=== PATIENT | female | born 1995 | race American Indian/Alaskan Native ===

== ENCOUNTER 2017-04-13 22:10 | Emergency (ER) | payer MEDICAID, OTHER ==
[2017-04-14 03:01] VITALS: BP 108/90
[2017-04-14 04:30] LABS: Bacteria,Urine 1+ /HPF (Negative); Bilirubin,Urine NEG (Negative); Blood,Urine NEG (Negative); Color,Urine Yellow (Yellow); Mucus,Urine 1+ /HPF; Urobilinogen,Urine < 2.0 mg/dL (<2.0)
--- NOTE | 2017-04-14 05:20 | Emergency Department Report ---
ED Female HPI - General Chief complaint: Urogenital-Female Stated complaint: PAIN AND NAUSEA Time Seen by Provider: 04/14/17 05:20 Source: patient, family Mode of arrival: Ambulatory Limitations: No Limitations - History of Present Illness Initial comments: Patient here report that she is 17 weeks and been seen by [facility]. She said that she has symptoms as urinary tract infection to include burning urgency and frequency. Denies any abdominal or back pain. Denies any nausea or vomiting. Denies any fever or chills. Pain is 10 out of 10 with urinating. Burning sensation. No medication taken. Patient reports that her baby is fine and she's been having a regular care to include taking vitamin. Denies any vaginal bleeding or discharge. She said babies moving appropriately. MD Complaint: dysuria Onset/Timin -: days(s) Severity: severe Severity scale (0 -10): 10 Quality: burning (urinating) Consistency: intermittent Worsens with: urination Are you Now?: Yes (17 weeks) Associated Symptoms: dysuria. denies: vaginal discharge, vaginal bleeding, abdominal pain, nausea/vomiting, fever/chills, headaches, loss of appetite, hematuria, shortness of breath, syncope, weakness - Related Data Sexually active: Yes Previous Rx's Medication Instructions Recorded Last Taken Type Acetaminophen/Codeine 1 tab PO Q6H PRN #10 tab 04/11/14 Unknown Rx [Acetaminophen-Codeine #3 TAB] Cyclobenzaprine [Flexeril 10mg] 10 mg PO BID PRN #10 tablet 04/11/14 Unknown Rx Ibuprofen [Motrin 600 MG tab] 600 mg PO Q8H PRN #10 tablet 04/11/14 Unknown Rx Fluconazole [Diflucan TAB] 150 mg PO ONCE 1 Days #1 tablet 04/14/17 Unknown Rx Nitrofurantoin Terry/M-Cryst 100 mg PO Q12HR 7 Days #14 capsule 04/14/17 Unknown Rx [Macrobid CAP] Allergies Allergy/AdvReac Type Severity Reaction Status Date / Time No Known Allergies Allergy Unverified 04/11/14 20:10 ED Review of Systems ROS: Stated complaint: PAIN AND NAUSEA Other details as noted in HPI Comment: All other systems reviewed and negative Constitutional: no symptoms reported Respiratory: no symptoms reported Cardiovascular: denies: chest pain, palpitations, dyspnea on exertion, edema, syncope, paroxysmal nocturnal dyspnea Gastrointestinal: denies: abdominal pain, nausea, vomiting, diarrhea, constipation, hematemesis, melena, hematochezia Genitourinary: urgency, dysuria, frequency. denies: hematuria, discharge Musculoskeletal: denies: back pain, joint swelling, arthralgia Skin: denies: rash Neurological: denies: headache ED Past Medical Hx - Past Medical History Previous Medical History?: Yes Hx Asthma: Yes - Surgical History Past Surgical History?: No - Family History Family history: no significant - Social History Smoking Status: Never Smoker Substance Use Type: None - Medications Home Medications: Home Medications Medication Instructions Recorded Confirmed Last Taken Type Acetaminophen/Codeine 1 tab PO Q6H PRN #10 tab 04/11/14 Unknown Rx [Acetaminophen-Codeine #3 TAB] Cyclobenzaprine [Flexeril 10mg] 10 mg PO BID PRN #10 tablet 04/11/14 Unknown Rx Ibuprofen [Motrin 600 MG tab] 600 mg PO Q8H PRN #10 tablet 04/11/14 Unknown Rx Fluconazole [Diflucan TAB] 150 mg PO ONCE 1 Days #1 tablet 04/14/17 Unknown Rx Nitrofurantoin Terry/M-Cryst 100 mg PO Q12HR 7 Days #14 capsule 04/14/17 Unknown Rx [Macrobid CAP] ED Physical Exam - General Limitations: No Limitations General appearance: alert, in no apparent distress - Head Head exam: Present: atraumatic, normocephalic, normal inspection - Eye Eye exam: Present: normal appearance, PERRL, EOMI Pupils: Present: normal accommodation - ENT ENT exam: Present: normal exam, normal orophraynx, mucous membranes moist - Neck Neck exam: Present: normal inspection, full ROM. Absent: tenderness, meningismus, lymphadenopathy, thyromegaly - Respiratory Respiratory exam: Present: normal lung sounds bilaterally. Absent: respiratory distress, chest wall tenderness - Cardiovascular Cardiovascular Exam: Present: regular rate, normal rhythm, normal heart sounds. Absent: systolic murmur, diastolic murmur - GI/Abdominal GI/Abdominal exam: Present: soft, normal bowel sounds. Absent: distended, tenderness, guarding, rebound, rigid, organomegaly, mass, bruit, pulsatile mass , hernia - Extremities Exam Extremities exam: Present: normal inspection, full ROM, normal capillary refill , other (no clubbing, cyanosis or edema. +2 pulses to all extremities and no neurovascular compromise.). Absent: tenderness, pedal edema, joint swelling, calf tenderness - Back Exam Back exam: Present: normal inspection, full ROM, other (ambulates without any difficulties). Absent: tenderness, CVA tenderness (R), CVA tenderness (L), muscle spasm, paraspinal tenderness, vertebral tenderness, rash noted - Neurological Exam Neurological exam: Present: alert, oriented X3, normal gait - Psychiatric Psychiatric exam: Present: normal affect, normal mood - Skin Skin exam: Present: warm, dry, intact, normal color. Absent: rash ED Course Vital Signs 04/13/17 04/14/17 22:32 03:00 Temperature 98.3 F 98.3 F Pulse Rate 92 H 80 Respiratory 18 14 Rate Blood Pressure 129/85 108/90 O2 Sat by Pulse 100 100 Oximetry - Reevaluation(s) Reevaluation #1: 04/14/17 06:17 given Rocephin 1 g IM in emergency room without any adverse reaction to cover her urinary tract infection ED Medical Decision Making - Lab Data Lab Results 04/14/17 Range/Units 03:47 Urine Color Yellow (Yellow) Urine Turbidity Cloudy (Clear) Urine pH 6.0 (5.0-7.0) Ur Specific [place] 1.028 (1.003-1.030) Urine Protein 30 mg/dl (Negative) mg/dL Urine Glucose (UA) Neg (Negative) mg/dL Urine Ketones Neg (Negative) mg/dL Urine Blood Neg (Negative) Urine Nitrite Neg (Negative) Urine Bilirubin Neg (Negative) Urine Urobilinogen < 2.0 (<2.0) mg/dL Ur Leukocyte Esterase Lg (Negative) Urine WBC (Auto) 53.0 H (0.0-6.0) /HPF Urine RBC (Auto) 10.0 (0.0-6.0) /HPF U Epithel Cells (Auto) 12.0 (0-13.0) /HPF Urine Bacteria (Auto) 1+ (Negative) /HPF Urine Mucus 1+ /HPF Ur Yeast w Hyphae 1+ /HPF Urine Yeast (Budding) 2+ /HPF Urine culture pending - Medical Decision Making ED course: Patient here with urinary symptoms at 17 weeks . She denies any abdominal pain, back pain, vaginal bleeding or discharge. She reports urinary burning, frequency and urgency that started a day ago. Patient is been followed by [facility] and she says that she gets regular check and she's had ultrasound because in her uterus. Baby is moving appropriately per patient. Pain with urination that out of 10. Urinalysis reveal patient with acute cystitis without hematuria with large amount of leukocyte esterase, 53 wbc, 30 protein she also has yeast in her urine with denial of vaginal discharge. I discussed the patient diagnosis and treatment plan. She was given Rocephin 1 g IM in emergency room without any adverse reaction. Patient able to tolerate oral liquids. Patient discharged home to follow-up with [facility] in 2 days. I told her to call today to schedule an appointment for follow-up visit. I discussed with her I we'll treat urinary tract infection with antibiotic pill and yeast infection with vaginal suppository. Patient discharged home with prescription for Macrobid and Diflucan on 150 mg 1 dose. I discussed patient that she needs to tell her [facility] WORK[facility] doctor that she was treated in emergency room for yeast urinary tract infection with Diflucan on initial standing her body for 90 days and also with Macrobid. I encouraged her to increase her fluid intake. Critical care attestation.: If time is entered above; I have spent that time in minutes in the direct care of this critically ill patient, excluding procedure time. ED Disposition Clinical Impression: Yeast UTI Acute cystitis during Qualifiers: Trimester: second trimester Qualified Code(s): O23.12 - Infections of bladder in , second trimester Disposition: DC-01 TO HOME OR SELFCARE Is pt being admited?: No Does the pt Need Aspirin: No Condition: Stable Instructions: Dysuria (ED), Urinary Tract Infection in Women (ED) Additional Instructions: Please state Diflucan 1 dose as prescribed. This will treat yeast urinary tract infection which she have a small amount of yeast in your urine Take Macrobid 7 days for arterial infection Call your [facility] WORKER today to schedule an appointment to see tomorrow or the next day. If he develops, abdominal pain, vaginal bleeding or any related problems, return to the emergency room drink plenty of fluid. Prescriptions: Fluconazole [Diflucan TAB] 150 mg PO ONCE 1 Days #1 tablet Nitrofurantoin Terry/M-Cryst [Macrobid CAP] 100 mg PO Q12HR 7 Days #14 capsule Referrals: [facility] [Provider Group] - 04/15/17 Forms: Work/School Release Form(ED)
[2017-04-14] MEDS ORDERED: ROCEPHIN IM STA (05:21)
== END 2017-04-14 06:45 | disposition home or self-care (01) ==
LOC: ED 22:10
DX: O23.12 Infections of bladder in pregnancy, second trimester (principal); O99.512 Diseases of the respiratory system complicating pregnancy, second trimester; J45.909 Unspecified asthma, uncomplicated; Z3A.17 17 weeks gestation of pregnancy
CPT/HCPCS: 81001; 96372; 99283; J0696

== ENCOUNTER 2017-06-06 09:06 | Outpatient (CLI) | payer BC, MEDICAID ==
[2017-06-06 11:58] VITALS: BP 113/74
--- NOTE | 2017-06-06 14:58 | Ultrasound Report ---
OB limited and sonographic Limited abdomen: History: Status post fall. Abdominal pain. Findings: Single fetus with cephalic presentation. Placenta is fundal and grade 0. heart rate 159 per minute. No evidence of abruptio. Average gestational age 24 weeks and 2 days. Impression: Findings as detailed above. No evidence of abruptio.
[2017-06-06 16:28] LABS: Basophils % (Auto) 0.4 % (0.0-1.8); Eosinophils # (Auto) 0.2 K/mm3 (0.0-0.4); Eosinophils % (Auto) 2.4 % (0.0-4.3); Hematocrit 34.6 % (30.3-42.9); Hemoglobin 11.4 gm/dl (10.1-14.3); Lymphocytes # (Auto) 1.9 K/mm3 (1.2-5.4); Mean Corpuscular HGB Conc 33 % (30-34); Mean Corpuscular Hemoglobin 30 pg (28-32); Mean Corpuscular Volume 91 fl (79-97); Monocytes # (Auto) 0.3 K/mm3 (0.0-0.8); Monocytes % (Auto) 3.8 % (0.0-7.3); Platelet Count 276 K/mm3 (140-440); Red Blood Count 3.82 M/mm3 (3.65-5.03); Red Cell Distribution Width 14.3 % (13.2-15.2)
[2017-06-06 16:39] LABS: INR 0.99 (0.87-1.13)
[2017-06-06 16:40] LABS: Partial Thromboplastin Time 30.5 Sec. (24.2-36.6)
== END 2017-06-06 16:45 | disposition home or self-care (01) ==
LOC: US 09:06 → LD 10:50 → US 16:45
PROVIDERS: ATTEND Obstetrics & Gynecology
DX: O99.612 Diseases of the digestive system complicating pregnancy, second trimester (principal); K80.20 Calculus of gallbladder without cholecystitis without obstruction; Z91.81 History of falling; Z3A.24 24 weeks gestation of pregnancy
CPT/HCPCS: 36415; 59025; 76705; 76815; 85025; 85610; 85730

== ENCOUNTER 2017-06-25 20:41 | Outpatient (CLI) | payer BC, MEDICAID ==
[2017-06-25 20:54] VITALS: BP 113/67
== END 2017-06-25 21:40 | disposition home or self-care (01) ==
LOC: TRG 20:41
PROVIDERS: ATTEND Obstetrics & Gynecology
DX: O36.8120 Decreased fetal movements, second trimester, not applicable or unspecified (principal); Z3A.27 27 weeks gestation of pregnancy
CPT/HCPCS: 59025

== ENCOUNTER 2017-07-07 22:43 | Outpatient (CLI) | payer BC, MEDICAID ==
[2017-07-07 22:59] VITALS: BP 116/62
[2017-07-07] MEDS ORDERED: LACTATED RINGERS 1,000 ML IV ONE (23:35)
[2017-07-08 01:01] LABS: Bacteria,Urine 1+ /HPF (Negative); Bilirubin,Urine NEG (Negative); Blood,Urine NEG (Negative); Calcium Oxalate Crystals,Urine 1+; Color,Urine Yellow (Yellow); Mucus,Urine 1+ /HPF
[2017-07-08 01:06] LABS: WBC,Urine > 182.0 /HPF (0.0-6.0)
[2017-07-08] MEDS ORDERED: ROCEPHIN/NS 1 GM/50 ML 1 GM/50 ML BAG IV ONE (02:08)
[2017-07-08] MEDS ORDERED: cefTRIAXone 1 GM in NACL 0.9% 20 ML IV ONE (02:08)
--- NOTE | 2017-07-15 09:48 | Ultrasound Report ---
FINAL REPORT EXAM: OB US LIMITED FETUS(S) HISTORY: Vaginal bleeding TECHNIQUE: Transabdominal imaging was obtained through the pelvis with Doppler interrogation of the placenta and fetus. FINDINGS: There is a single viable IUP with an estimated gestational age of 28 weeks 6 days. The heart rate is 159 BPM. The placenta is anterior and fundal and is grade 1. There is no evidence of abruption. The cervical length is 2.2 cm. The cervix is closed. A complete survey of organs was not obtained. IMPRESSION: Single viable IUP, 28 weeks 6 days. The heart rate is 159 BPM. No evidence of placental abruption. The cervix is closed measuring 2.2 cm in length.
== END 2017-07-08 02:50 | disposition home or self-care (01) ==
LOC: TRG 22:43
PROVIDERS: ATTEND Obstetrics & Gynecology
DX: O46.93 Antepartum hemorrhage, unspecified, third trimester (principal); Z3A.28 28 weeks gestation of pregnancy
CPT/HCPCS: 36415; 59025; 76815; 81001; 82731; 96374; J0696

== ENCOUNTER 2017-07-13 06:04 | Outpatient (CLI) | payer BC, MEDICAID ==
[2017-07-13 06:23] VITALS: BP 115/67
[2017-07-13] MEDS ORDERED: LACTATED RINGERS 1,000 ML IV ONE (06:29)
[2017-07-13] MEDS ORDERED: ZOFRAN IV ONE (06:37)
[2017-07-13] MEDS ORDERED: LACTATED RINGERS 1,000 ML ONE ×2 (06:38→11:16)
[2017-07-13 07:14] LABS: Amorphous Crystals,Urine Few; Bilirubin,Urine NEG (Negative); Blood,Urine NEG (Negative); Color,Urine Amber (Yellow); Mucus,Urine 2+ /HPF
[2017-07-13 07:19] LABS: Hematocrit 34.4 % (30.3-42.9); Hemoglobin 11.9 gm/dl (10.1-14.3); Mean Corpuscular HGB Conc 35 % (30-34); Mean Corpuscular Hemoglobin 31 pg (28-32); Mean Corpuscular Volume 88 fl (79-97); Platelet Count 259 K/mm3 (140-440); Red Cell Distribution Width 14.7 % (13.2-15.2)
[2017-07-13 07:22] LABS: Lipase 16 units/L (13-60)
[2017-07-13 07:26] LABS: Alanine Aminotransferase 7 units/L (7-56); Albumin 3.1 g/dL (3.9-5); BUN/Creatinine Ratio 13; Blood Urea Nitrogen 5 mg/dL (7-17); Calcium 8.3 mg/dL (8.4-10.2); Hemolysis Index 4
--- NOTE | 2017-07-13 11:51 | Ultrasound Report ---
ULTRASOUND ABDOMEN COMPLETE: TECHNIQUE: Transabdominal ultrasound with color Doppler interrogation. HISTORY: Nausea and vomiting during . COMPARISON: none. FINDINGS: LIVER: Normal. BILIARY SYSTEM: Multiple small shadowing gallstones are noted within the gallbladder which are unchanged since 06/06/17 exam. No evidence for abnormal dilatation, wall thickening or surrounding fluid. The CBD measures 3 mm. PANCREAS: Normal. SPLEEN: Normal. KIDNEYS: Normal. AORTA/IVC: Normal. ASCITES: None. IMPRESSION: Cholelithiasis. No acute abdominal process..
[2017-07-13] MEDS ORDERED: ALUM-MAG HYDROX-SIMETH 200-200-20MG/5ML PO ONE (12:00)
[2017-07-13] MEDS ORDERED: MIRACLE MIXTURE PO SCH (12:00)
[2017-07-13] MEDS ORDERED: LIDOCAINE VISCOUS 2% PO ONE (12:00)
== END 2017-07-13 15:25 | disposition home or self-care (01) ==
LOC: TRG 06:04 → LD 11:25 → TRG 15:25
PROVIDERS: ATTEND Obstetrics & Gynecology
DX: O47.02 False labor before 37 completed weeks of gestation, second trimester (principal); Z3A.29 29 weeks gestation of pregnancy
CPT/HCPCS: 36415; 59025; 76700; 80053; 81001; 82150; 83690; 85027; J2405; J7120

== ENCOUNTER 2017-07-13 21:04 | Observation (INO) | payer BC, MEDICAID ==
--- NOTE | 2017-07-13 22:37 | History and Physical Report ---
History of Present Illness Date of examination: 07/13/17 Chief complaint: abdominal pain, heartburn History of present illness: Pt is a 22 year old -Irish female BOLA 09/24/17 at 29w4d who presents with epigastric abdominal pain and severe heartburn. Pt called answering service in the early AM with complaint of heartburn. Omeprazole 20 mg PO daily sent to her pharmacy on file. She then felt that her heartburn worsened after taking this medication as well as frequent nausea and vomiting so she presented to triage. She was observed for 2 hours, received a GI cocktail , Zofran and had a right upper quadrant ultrasound which showed cholelithiasis. She subsequently reported a pain scale value of 0 and was discharged home. Once at home, the patient attempted to eat two bites of baked chicken and her symptoms returned. She has been admitted for further observation. She has had care at [facility] since 8 wks with comanagement by [facility] complicated by morbid obesity, h/o HELLP syndrome at 30 wks , H/o labor at 30 wks, h/o IUFD at 30 wks, genital herpes, chlamydia ( treated with a negative test of cure), fibroid uterus, asthma, IUGR which resolved per [facility] sono 06/20/17, and GERD. 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 History: chlamydia (treated with negative test of cure ), herpes Family/Genetic History: hypertension Social history: no significant social history - Obstetrical History Expected Date of Delivery: 09/24/17 Actual Gestation: 29 Week(s) 5 Day(s) : 3 Para: 2 Hx # Term Pregnancies: 0 Number of Pregnancies: 2 Spontaneous Abortions: 0 Induced : 0 Number of Living Children: 1 Medications and Allergies Allergies Allergy/AdvReac Type Severity Reaction Status Date / Time No Known Allergies Allergy Verified 06/06/17 10:14 Home Medications Medication Instructions Recorded Confirmed Last Taken Type Aspirin [Aspirin BABY CHEW TAB] 81 mg PO QDAY 07/13/17 07/13/17 07/13/17 History Omeprazole Magnesium [PriLOSEC Otc] 20 mg PO QDAY 07/13/17 07/13/17 07/12/17 23: 30 History Pnv 102/Iron/Folate 1/Dss/Dha 1 each PO DAILY 07/13/17 07/13/17 07/13/17 History [Vitafol Fe+ Docusate Combo Pck] Review of Systems All systems: negative - Vital Signs Vital signs: Vital Signs Pulse Ox 85 07/13/17 11:03 Temp Pulse Resp BP Pulse Ox 98.6 F 92 H 18 118/66 97 07/13/17 21:35 07/13/17 22:38 07/13/17 21:35 07/13/17 21:38 07/13/17 22:38 - Physical Exam Breasts: Positive: deferred Cardiovascular: Regular rate Lungs: Positive: Clear to auscultation Abdomen: Positive: soft (obese, gravid ) Genitourinary (Female): Positive: normal external genitalia Extremities: Positive: normal - Obstetrical FHR: auscultation normal Uterine Contraction Monitor Mode: External Uterine Tone Measurement Phase: Resting Results All other labs normal. Assessment and Plan A: IUP at 29w5d Periumbilical pain GERD Asthma H/o labor at 30 wks H/o IUFD at 30 wks H/o HELLP Syndrome Genital herpes Fibroid uterus P: Admit to antepartum service Continuous monitoring FFN Betamethasone course GI consult in AM GI cocktail PRN Labs drawn during triage visit earlier today.
[2017-07-13] MEDS ORDERED: COLACE PO PRN (22:49)
[2017-07-13] MEDS ORDERED: ZOFRAN IV PRN (22:49)
[2017-07-13] MEDS ORDERED: TYLENOL PO PRN (22:49)
[2017-07-13] MEDS ORDERED: DEEP SEA NS PRN (22:49)
[2017-07-13] MEDS ORDERED: BENADRYL PO PRN (22:49)
[2017-07-13] MEDS ORDERED: MORPHINE IV PRN (23:09)
[2017-07-13] MEDS: MIRACLE MIXTURE PO PRN (23:44)
[2017-07-13] MEDS: D5LR 1,000 ML IV SCH (23:45)
[2017-07-14] MEDS: CELESTONE SOLUSPAN IM SCH (00:07)
[2017-07-14] MEDS: D5LR 1,000 ML IV SCH ×2 (07:37→17:15)
--- NOTE | 2017-07-14 08:51 | Progress Note ---
Assessment and Plan A: IUP at 29+6 weeks Periumbilical pain GERD Asthma H/o labor at 30 wks H/o IUFD at 30 wks H/o HELLP Syndrome Genital herpes Fibroid uterus P: Continuous monitoring FFN neg Betamethasone course GI consult in AM-awaiting GI cocktail PRN Subjective - Subjective Date of service: 07/14/17 Principal diagnosis: nausea and vomiting Patient reports: movement normal, no new complaints, no loss of fluid, no vaginal bleeding, no contractions Objective - Vital Signs Vital Signs: Vital Signs - 12hr 07/13/17 07/13/17 07/13/17 21:35 21:38 21:41 Temperature 98.6 F Pulse Rate 104 H 95 H Respiratory 18 Rate Blood Pressure 118/66 Blood Pressure [Left] O2 Sat by Pulse 97 94 Oximetry 07/13/17 07/13/17 07/13/17 21:43 21:48 21:53 Temperature Pulse Rate 95 H 95 H 93 H Respiratory Rate Blood Pressure Blood Pressure [Left] O2 Sat by Pulse 98 97 97 Oximetry 07/13/17 07/13/17 07/13/17 21:58 22:03 22:08 Temperature Pulse Rate 92 H 94 H 92 H Respiratory Rate Blood Pressure Blood Pressure [Left] O2 Sat by Pulse 97 96 98 Oximetry 07/13/17 07/13/17 07/13/17 22:13 22:18 22:23 Temperature Pulse Rate 98 H 95 H 86 Respiratory Rate Blood Pressure Blood Pressure [Left] O2 Sat by Pulse 99 97 97 Oximetry 07/13/17 07/13/17 07/13/17 22:28 22:33 22:38 Temperature Pulse Rate 93 H 91 H 92 H Respiratory Rate Blood Pressure Blood Pressure [Left] O2 Sat by Pulse 96 96 97 Oximetry 07/13/17 07/13/17 07/13/17 22:43 22:48 22:53 Temperature Pulse Rate 97 H 97 H 90 Respiratory Rate Blood Pressure Blood Pressure [Left] O2 Sat by Pulse 97 97 98 Oximetry 07/13/17 07/13/17 07/13/17 22:58 23:03 23:08 Temperature Pulse Rate 90 90 93 H Respiratory Rate Blood Pressure Blood Pressure [Left] O2 Sat by Pulse 97 97 98 Oximetry 07/13/17 07/13/17 07/13/17 23:13 23:18 23:23 Temperature Pulse Rate 89 87 85 Respiratory Rate Blood Pressure Blood Pressure [Left] O2 Sat by Pulse 97 97 99 Oximetry 07/13/17 07/13/17 07/13/17 23:28 23:33 23:38 Temperature Pulse Rate 81 87 91 H Respiratory Rate Blood Pressure Blood Pressure [Left] O2 Sat by Pulse 95 95 96 Oximetry 07/13/17 07/14/17 07/14/17 23:43 00:11 00:16 Temperature 98.7 F Pulse Rate 85 88 Respiratory 18 Rate Blood Pressure Blood Pressure [Left] O2 Sat by Pulse 95 98 95 Oximetry 07/14/17 07/14/17 07/14/17 00:17 05:06 05:07 Temperature 98.4 F Pulse Rate 81 87 Respiratory 18 Rate Blood Pressure 98/51 104/58 Blood Pressure [Left] O2 Sat by Pulse 97 Oximetry 07/14/17 07/14/17 07/14/17 07:49 07:52 07:55 Temperature 97.7 F Pulse Rate 72 72 79 Respiratory 14 Rate Blood Pressure 107/67 Blood Pressure 107/67 [Left] O2 Sat by Pulse 100 98 Oximetry - Exam Breasts: normal Cardiovascular: Regular rate, Normal S1 Lungs: Clear to auscultation, Normal air movement Abdomen: Present: normal appearance, soft, normal bowel sounds. Absent: distention, tenderness, guarding Vulva: both: normal Uterus: Present: normal, firm, fundal height below umbilicus. Absent: bogginess , tenderness FHR: auscultation normal, category 1 - Labs Labs: Laboratory Results - last 24 hr 07/14/17 00:11 Fibronectin Negative
[2017-07-14] MEDS ORDERED: PRENATAL VITAMIN PO SCH (10:00)
--- NOTE | 2017-07-14 11:47 | Gastroenterology Consultation ---
History of Present Illness - Reason for Consult Consult date: 07/14/17 nausea and vomiting, gallstone Requesting physician: YUMIKO RUSSELL - History of Present Illness The patient is a 22 year old female for whom consultation was requested for nausea, vomiting and the finding of gallbladder stones on u/s done just prior to admission. She has had severe heartburn associated with some nausea and vomiting for a few days. Heartburn has been and issue for a few months. She denies back pain or weight loss. Symptoms have improved since admission so far. She is currently at 29 weeks in her . The u/s report is not presently available for review of the details. She has a prior history of HELLP syndrome at 29 weeks gestation and a history of pre term labor at 30 weeks. Past History Past Medical History: No medical history Past Surgical History: No surgical history Social history: no significant social history. denies: smoking, alcohol abuse Family history: no significant family history Medications and Allergies Allergies Allergy/AdvReac Type Severity Reaction Status Date / Time No Known Allergies Allergy Verified 06/06/17 10:14 Home Medications Medication Instructions Recorded Confirmed Last Taken Type Aspirin [Aspirin BABY CHEW TAB] 81 mg PO QDAY 07/13/17 07/13/17 07/13/17 History Omeprazole Magnesium [PriLOSEC Otc] 20 mg PO QDAY 07/13/17 07/13/17 07/12/17 23: 30 History Pnv 102/Iron/Folate 1/Dss/Dha 1 each PO DAILY 07/13/17 07/13/17 07/13/17 History [Vitafol Fe+ Docusate Combo Pck] Active Meds: Active Medications Acetaminophen (Tylenol) 650 mg PO Q4H PRN PRN Reason: Pain MILD(1-3)/Fever >100.5/ZHAO Betamethasone Acet/Betameth SodPhos (Celestone Soluspan) 12 mg IM Q24H SANDHYA Stop: 07/15/17 00:01 Last Admin: 07/14/17 00:07 Dose: 12 mg Diphenhydramine HCl (Benadryl) 25 mg PO Q6H PRN PRN Reason: Itching Docusate Sodium (Colace) 100 mg PO Q12H PRN PRN Reason: Constipation Dextrose/Lactated Ringer's (D5lr) 1,000 mls @ 125 mls/hr IV DIRECT SANDHYA Last Admin: 07/14/17 07:37 Dose: 125 mls/hr Lidocaine HCl (Miracle Mixture) 15 ml PO Q8H PRN PRN Reason: Pain Last Admin: 07/13/17 23:44 Dose: 15 ml Morphine Sulfate (Morphine) 2 mg IV Q4H PRN PRN Reason: Pain, Moderate (4-6) Multivitamins/Iron/Calcium ( Vitamin) 1 each PO QDAY [facility] Last Admin: 07/14/17 10:48 Dose: 1 each Ondansetron HCl (Zofran) 4 mg IV Q6H PRN PRN Reason: Nausea And Vomiting Pantoprazole Sodium (Protonix) 40 mg PO QDAY [facility] Sodium Chloride (Deep Sea) 2 spray NS Q4H PRN PRN Reason: Congestion Review of Systems - Review of Systems Constitutional: weight gain Eyes: no change in vision Ears, Nose, Throat: no difficulty swallowing, no epistaxis, no painful swallowing Breasts: deferred Cardiovascular: no chest pain, no rapid/irregular heart beat, no shortness of breath Respiratory: no cough, no shortness of breath Gastrointestinal: abdominal pain, nausea, vomiting, no hematemesis, no BRBPR, no melena Rectal: no pain Female Genitourinary: deferred Musculoskeletal: no gait dysfunction, no joint pain, no muscle pain Integumentary: no deferred, no rash, no pruritis, no jaundice Neurological: no head injury, no paralysis Psychiatric: no anxiety, no memory loss Endocrine: no cold intolerance, no heat intolerance Exam - Constitutional Vital Signs: Temp Pulse Resp BP Pulse Ox 97.7 F 79 14 107/67 98 07/14/17 07:49 07/14/17 07:55 07/14/17 07:49 07/14/17 07:52 07/14/17 07:55 General appearance: no acute distress, well-nourished - EENT Eyes: PERRL ENT: hearing intact, clear oral mucosa, dentition normal - Neck Neck: supple, normal ROM, no masses or JVD - Respiratory Respiratory effort: normal Respiratory: bilateral: CTA - Breasts Breasts: deferred - Cardiovascular Rhythm: regular Heart Sounds: Present: S1 & S2. Absent: gallop, rub Extremities: pulses intact, No edema, normal color, Full ROM - Gastrointestinal General gastrointestinal: Present: soft, non-tender, distended (consistent with gestation stage), normal bowel sounds. Absent: hepatomegaly (within limits of the body habitus), splenomegaly (within limits of the body habitus) Rectal Exam: deferred - Genitourinary Female Genitourinary: deferred - Neurologic Neurological: alert and oriented x3 - Psychiatric Psychiatric: appropriate mood/affect, intact judgment & insight, memory intact - Labs Lab Results: Laboratory Results - last 24 hr 07/14/17 00:11 Fibronectin Negative Assessment and Plan - Patient Problems (1) Nausea & vomiting Current Visit: Yes Status: Acute Plan to address problem: Labs ordered to assess LFTs, lipase level. (2) Gallstone Current Visit: Yes Status: Acute Plan to address problem: The exam and symptoms do not favor acute cholecystitis. I would like to see the details of the u/s to assess the GB for other signs of cholecystitis. Further evaluation in the post status would be preferred, eg HIDA scan. She would not be a surgical candidate short of emergency. (3) Current Visit: Yes Status: Acute Qualifiers: Weeks of gestation: 29 weeks Qualified Code(s): Z3A.29 - 29 weeks gestation of (4) GERD (gastroesophageal reflux disease) Current Visit: Yes Status: Acute Plan to address problem: Higher dose PPI has been ordered. She may need IV protonix if unable to tolerate PO.
[2017-07-14] MEDS ORDERED: PROTONIX PO SCH (12:00)
[2017-07-14 13:42] LABS: Basophils % (Auto) 0.1 % (0.0-1.8); Hematocrit 34.5 % (30.3-42.9); Hemoglobin 11.9 gm/dl (10.1-14.3); Lymphocytes # (Auto) 0.9 K/mm3 (1.2-5.4); Mean Corpuscular HGB Conc 34 % (30-34); Mean Corpuscular Hemoglobin 31 pg (28-32); Mean Corpuscular Volume 89 fl (79-97); Monocytes # (Auto) 0.2 K/mm3 (0.0-0.8); Monocytes % (Auto) 2.9 % (0.0-7.3); Platelet Count 286 K/mm3 (140-440); Red Blood Count 3.89 M/mm3 (3.65-5.03); Red Cell Distribution Width 14.8 % (13.2-15.2)
--- NOTE | 2017-07-14 15:42 | Query- General ---
Dearobbie Ferrer Christos Date:____07/14/2017 [employer]/CDS: [email or web address] Phone#:__[phone] Exercise your independent professional judgment when responding to this query. Questions asked do not imply a particular answer is desired or expected. We greatly appreciate your clarification on this issue. Clinical Documentation States: Pt is a 22 year old -Citizen Of [place] female BOLA 09/24/17 at 29w4d who presents with epigastric abdominal pain and severe heartburn. Taken from H&P note (Sepideh Maravilla) on 07/13/17. Assessment and Plan: IUP at 29w5d Periumbilical pain GERD Asthma H/o labor at 30 wks H/o IUFD at 30 wks H/o HELLP Syndrome Genital herpes Fibroid uterus Clinical Findings Show (include reference to source document): BMI: 43.7 kg/m Given the above clinical scenario can you please provide an appropriate diagnosis based on your knowledge of the patient: PHYSICIAN RESPONSE: [ ]Overweight [ ]Obesity [ X]Morbid Obesity [ ]Other [ ]Comment/Explanation Present on Admission: [ X] Yes (Y) [ ] Clinically undeterminable (W) [ ]No(N) Please also document response in your Progress Notes and/or Discharge Summary and indicate if the condition was present on admission. MTDD
[2017-07-14] MEDS: MIRACLE MIXTURE PO PRN (22:46)
[2017-07-15] MEDS: CELESTONE SOLUSPAN IM SCH (00:51)
[2017-07-15] MEDS: D5LR 1,000 ML IV SCH (00:52)
[2017-07-15 08:07] VITALS: BP 111/67
--- NOTE | 2017-07-15 09:03 | Progress Note ---
Assessment and Plan - Patient Problems (1) Gallstone Current Visit: Yes Status: Acute Plan to address problem: The patient does not demonstrate any evidence of active cholecystitis Current symptoms are improved (2) Nausea & vomiting Current Visit: Yes Status: Acute Subjective - Subjective Date of service: 07/15/17 Principal diagnosis: nausea and vomiting Interval history: She notes improvement in her symptoms today. She reports being able to tolerate [employer] chicken last night. She denies any further nausea and vomiting today. Her abdominal pain is improved. Patient reports: movement normal, no new complaints, no loss of fluid, no vaginal bleeding, no contractions Objective - Vital Signs Vital Signs: Vital Signs - 12hr 07/15/17 07/15/17 07/15/17 00:30 00:54 05:04 Temperature 98.5 F Pulse Rate 73 71 Respiratory 18 18 Rate Blood Pressure 118/60 Blood Pressure [Left] O2 Sat by Pulse Oximetry 07/15/17 07/15/17 08:05 08:10 Temperature 98.2 F Pulse Rate 85 85 Respiratory 16 Rate Blood Pressure 111/67 Blood Pressure 111/67 [Left] O2 Sat by Pulse 98 Oximetry - Exam Abdomen: Present: normal appearance, soft - Labs Labs: Abnormal Labs 07/14/17 13:12 Lymph # 0.9 L Seg Neutrophils % 81.0 H Laboratory Results - last 24 hr 07/14/17 07/14/17 13:12 13:12 WBC 5.6 RBC 3.89 Hgb 11.9 Hct 34.5 MCV 89 MCH 31 MCHC 34 RDW 14.8 Plt Count 286 Lymph % (Auto) 16.0 [place] % (Auto) 2.9 Eos % (Auto) 0.0 Baso % (Auto) 0.1 Lymph # 0.9 L [place] # 0.2 Eos # 0.0 Baso # 0.0 Seg Neutrophils % 81.0 H Seg Neutrophils # 4.5 Lipase 16
--- NOTE | 2017-07-15 09:05 | Discharge Summary ---
Providers - Providers Date of Admission: 07/13/17 23:40 Date of discharge: 07/15/17 Attending physician: YUMIKO RSUSELL 07/14/17 08:53 Consult to Physician [CONS] Urgent Comment: Consulting Provider: YURI UGALDE Physician Instructions: Reason For Exam: and nausea and vomiting with pain Primary care physician: YUMIKO RUSSELL Hospitalization Reason for admission: other (abdominal pain nausea and vomiting) Discharge diagnosis: other (cholelithiasis) Hospital course: The patient was admitted for observation secondary to worsening nausea and vomiting. The patient underwent imaging that demonstrated evidence of cholelithiasis. Her clinical findings did not suggest any evidence of cholecystitis. The patient has significant improvement in her symptoms with IV fluids, antibiotic therapy, and Protonix. Condition at discharge: Good Disposition: DC-01 TO HOME OR SELFCARE - Discharge Diagnoses (1) Gallstone Status: Acute (2) Nausea & vomiting Status: Acute Plan - Discharge Medications Prescriptions: Pantoprazole [Protonix] 40 mg PO QDAY #30 tablet - Provider Discharge Summary Activity: no heavy lifting 4 weeks Diet: routine Instructions: routine Additional instructions: [] Smoking cessation referral if applicable(refer to patient education folder for contact #) [] Refer to [facility] Booklet Call your doctor immediately for: * Fever > 100.5 * Heavy vaginal bleeding ( >1 pad per hour) * Severe persistent headache * Shortness of breath * Reddened, hot, painful area to leg or breast * Schedule follow-up in the [facility] clinic in 1 week - Follow up plan
== END 2017-07-15 09:45 | disposition home or self-care (01) ==
LOC: TRG 21:04 → LD 21:25 → TRG 23:40 → LD 23:40 → INTOOBSV 23:40
PROVIDERS: ADMIT Obstetrics & Gynecology; ATTEND Obstetrics & Gynecology
DX: O99.613 Diseases of the digestive system complicating pregnancy, third trimester (principal); K80.20 Calculus of gallbladder without cholecystitis without obstruction; K21.9 Gastro-esophageal reflux disease without esophagitis; O21.2 Late vomiting of pregnancy; O99.513 Diseases of the respiratory system complicating pregnancy, third trimester; J45.909 Unspecified asthma, uncomplicated; O98.313 Other infections with a predominantly sexual mode of transmission complicating pregnancy, third trimester; A60.00 Herpesviral infection of urogenital system, unspecified; O34.13 Maternal care for benign tumor of corpus uteri, third trimester; D25.9 Leiomyoma of uterus, unspecified; O99.213 Obesity complicating pregnancy, third trimester; E66.01 Morbid (severe) obesity due to excess calories; Z3A.29 29 weeks gestation of pregnancy; Z68.41 Body mass index [BMI] 40.0-44.9, adult
CPT/HCPCS: 36415; 82731; 83690; 85025; 96360; 96361; 96372; G0378; J0702; J7121

== ENCOUNTER 2017-07-26 01:09 | Outpatient (CLI) | payer BC, MEDICAID ==
[2017-07-26 01:37] VITALS: BP 126/55
[2017-07-26 03:16] LABS: Bacteria,Urine 1+ /HPF (Negative); Mucus,Urine 2+ /HPF
[2017-07-26 03:17] LABS: Bilirubin,Urine NEG (Negative); Blood,Urine NEG (Negative); Color,Urine Yellow (Yellow)
== END 2017-07-26 03:38 | disposition home or self-care (01) ==
LOC: TRG 01:09
PROVIDERS: ATTEND Obstetrics & Gynecology
DX: O47.03 False labor before 37 completed weeks of gestation, third trimester (principal); Z3A.31 31 weeks gestation of pregnancy
CPT/HCPCS: 59025; 81001

== ENCOUNTER 2017-08-07 01:02 | Outpatient (CLI) | payer BC, MEDICAID ==
[2017-08-07 01:15] VITALS: BP 118/69
[2017-08-07 02:22] LABS: Bacteria,Urine 4+ /HPF (Negative); Bilirubin,Urine NEG (Negative); Blood,Urine NEG (Negative); Color,Urine Yellow (Yellow); Hyaline Casts,Urine 1 /LPF; Mucus,Urine FEW /HPF; Protein,Urine <15 mg/dL mg/dL (Negative); Urobilinogen,Urine < 2.0 mg/dL (<2.0)
[2017-08-07] MEDS ORDERED: XYLOCAINE 1% MPF 5 mL INFILTRATI ONE (02:30)
[2017-08-07] MEDS ORDERED: ROCEPHIN IM ONE (02:30)
--- NOTE | 2017-08-07 03:17 | Ultrasound Report ---
FINAL REPORT PROCEDURE: US OB BPP WO NON-STRESS TECHNIQUE: Real-time limited sonographic examination was performed for evaluation of size, position, heartbeat, fluid volume for each fetus with image documentation (1 or more fetuses). CPT 24072 HISTORY: decrease movement COMPARISON: No prior studies are available for comparison. FINDINGS: breathing movements: 2. movements: 2. posterior and tone: 2. Qualitative amniotic fluid volume: 2. Total score: 8/8. IMPRESSION: Normal biophysical profile.
== END 2017-08-07 03:10 | disposition home or self-care (01) ==
LOC: TRG 01:02
PROVIDERS: ATTEND Obstetrics & Gynecology
DX: O36.8130 Decreased fetal movements, third trimester, not applicable or unspecified (principal); Z3A.33 33 weeks gestation of pregnancy
CPT/HCPCS: 59025; 76819; 81001; 87086; 96372; J0696

== ENCOUNTER 2017-08-13 12:07 | Outpatient (CLI) | payer BC, MEDICAID ==
[2017-08-13] MEDS ORDERED: LACTATED RINGERS 500 ML IV ONE (12:31)
[2017-08-13] MEDS ORDERED: NITRATEST PAPER MC ONE (12:33)
[2017-08-13 13:37] LABS: Bacteria,Urine 3+ /HPF (Negative); Bilirubin,Urine NEG (Negative); Blood,Urine NEG (Negative); Color,Urine Amber (Yellow); Mucus,Urine 3+ /HPF
[2017-08-13 14:07] VITALS: BP 120/77
[2017-08-13] MEDS ORDERED: XYLOCAINE 1% MPF 5 mL INFILTRATI ONE (14:18)
[2017-08-13] MEDS ORDERED: ROCEPHIN IM SCH (14:30)
== END 2017-08-13 15:00 | disposition home or self-care (01) ==
LOC: TRG 12:07
PROVIDERS: ATTEND Obstetrics & Gynecology
DX: O47.03 False labor before 37 completed weeks of gestation, third trimester (principal); Z3A.34 34 weeks gestation of pregnancy
CPT/HCPCS: 59025; 81001; J0696

== ENCOUNTER 2017-08-24 01:53 | Observation (INO) | payer BC, MEDICAID ==
[2017-08-24] MEDS ORDERED: LACTATED RINGERS 500 ML IV ONE (02:40)
[2017-08-24] MEDS ORDERED: PEPCID PO ONE ×2 (03:00→03:46)
--- NOTE | 2017-08-24 05:11 | Ultrasound Report ---
FINAL REPORT PROCEDURE: US OB LIMITED TECHNIQUE: Real-time limited sonographic examination was performed for evaluation of placenta for each fetus with image documentation (1 or more fetuses). CPT 04154 HISTORY: Decreased movement COMPARISON: No prior studies are available for comparison. FINDINGS: Fetus is transverse presentation. Heart rate is 145 beats per minute. Amniotic fluid index is 6.2 centimeters which is decreased. Placenta is fundal and grade 1. There is no previa or abruption. IMPRESSION: There is oligohydramnios. There is no placenta previa or abruption.
--- NOTE | 2017-08-24 05:33 | Ultrasound Report ---
FINAL REPORT PROCEDURE: US OB BPP WO NON-STRESS TECHNIQUE: Real-time limited sonographic examination was performed for evaluation of biophysical profile. For each fetus with image documentation (1 or more fetuses). CPT 93080 HISTORY: Decreased Movement COMPARISON: No prior studies are available for comparison. FINDINGS: breathing movements: 2. movements: 2. posterior and tone: 2. Amniotic fluid volume: 2. Total score: 8/8. heart rate: 145 beats per minute. IMPRESSION: Normal biophysical profile.
[2017-08-24] MEDS ORDERED: AMBIEN PO PRN (06:36)
[2017-08-24] MEDS ORDERED: SUDAFED PO PRN (06:36)
[2017-08-24] MEDS ORDERED: COLACE PO PRN (06:36)
[2017-08-24] MEDS ORDERED: DEEP SEA NS PRN (06:36)
[2017-08-24] MEDS ORDERED: TYLENOL PO PRN (06:36)
[2017-08-24] MEDS ORDERED: ALUM-MAG HYDROX-SIMETH 200-200-20MG/5ML PO PRN (06:36)
[2017-08-24] MEDS ORDERED: ZOFRAN IV PRN (06:36)
[2017-08-24] MEDS ORDERED: MYLICON PO PRN (06:36)
[2017-08-24] MEDS ORDERED: BENADRYL PO PRN (06:36)
[2017-08-24] MEDS ORDERED: GUAIFENESIN DM SYRUP PO PRN (06:36)
[2017-08-24] MEDS ORDERED: MILK OF MAGNESIA PO PRN (06:36)
[2017-08-24] MEDS ORDERED: LACTATED RINGERS 1,000 ML IV SCH (07:00)
[2017-08-24 07:26] LABS: Basophils % (Auto) 0.2 % (0.0-1.8); Eosinophils # (Auto) 0.2 K/mm3 (0.0-0.4); Eosinophils % (Auto) 2.1 % (0.0-4.3); Hematocrit 32.9 % (30.3-42.9); Hemoglobin 11.1 gm/dl (10.1-14.3); Lymphocytes % (Auto) 34.1 % (13.4-35.0); Mean Corpuscular HGB Conc 34 % (30-34); Mean Corpuscular Hemoglobin 29 pg (28-32); Mean Corpuscular Volume 86 fl (79-97); Monocytes # (Auto) 0.6 K/mm3 (0.0-0.8); Monocytes % (Auto) 6.5 % (0.0-7.3); Platelet Count 238 K/mm3 (140-440); Red Blood Count 3.81 M/mm3 (3.65-5.03); Red Cell Distribution Width 15.4 % (13.2-15.2)
--- NOTE | 2017-08-24 09:42 | History and Physical Report ---
History of Present Illness Date of examination: 08/24/17 Date of admission: 08/24/17 05:12 Chief complaint: decreased movement History of present illness: This is a 22 yo at 35+5 weeks EDC 09/24/17 came in this am for decreased movement. She reports no vaginal bleeding but gushing of fluid over the past week. She states baby has decreased movement. No contractions noted. Denies zhao,bv, scotomata nor ruq pain. 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 denies: smoking, alcohol abuse, prescription drug abuse - Obstetrical History Expected Date of Delivery: 09/24/17 Actual Gestation: 35 Week(s) 4 Day(s) : 3 Para: 2 Hx # Term Pregnancies: 0 Number of Pregnancies: 2 Spontaneous Abortions: 0 Induced : 0 Number of Living Children: 1 Medications and Allergies Allergies Allergy/AdvReac Type Severity Reaction Status Date / Time No Known Allergies Allergy Verified 06/06/17 10:14 Home Medications Medication Instructions Recorded Confirmed Last Taken Type Aspirin [Aspirin BABY CHEW TAB] 81 mg PO QDAY 07/13/17 08/13/17 1 Month Ago History ~07/14/17 Pnv 102/Iron/Folate 1/Dss/Dha 1 each PO DAILY 07/13/17 08/13/17 07/13/17 History [Vitafol Fe+ Docusate Combo Pck] Active Meds: Active Medications Acetaminophen (Tylenol) 650 mg PO Q4H PRN PRN Reason: Pain MILD(1-3)/Fever >100.5/ZHAO Al Hydrox/Mg Hydrox/Simethicone (Alum-Mag Hydrox-Simeth 083-372-79hr/5ml) 30 ml PO Q6H PRN PRN Reason: Indigestion Diphenhydramine HCl (Benadryl) 25 mg PO Q6H PRN PRN Reason: Itching Docusate Sodium (Colace) 100 mg PO Q12H PRN PRN Reason: Constipation Guaifenesin (Guaifenesin Dm Syrup) 10 ml PO Q6H PRN PRN Reason: Cough Lactated Ringer's (Lactated Ringers) 1,000 mls @ 125 mls/hr IV DIRECT SANDHYA Magnesium Hydroxide (Milk Of Magnesia) 30 ml PO QHS PRN PRN Reason: Laxative Effect Multivitamins/Iron/Calcium ( Vitamin) 1 each PO QDAY SANDHYA Ondansetron HCl (Zofran) 4 mg IV Q6H PRN PRN Reason: Nausea And Vomiting Pseudoephedrine HCl (Sudafed) 30 mg PO Q4H PRN PRN Reason: Nasal Congestion Simethicone (Mylicon) 80 mg PO Q6H PRN PRN Reason: Gas pain Sodium Chloride (Deep Sea) 2 spray NS Q4H PRN PRN Reason: Congestion Zolpidem Tartrate (Ambien) 10 mg PO QHS PRN PRN Reason: Sleep - Vital Signs Vital signs: Vital Signs Pulse BP 74 113/56 08/24/17 02:37 08/24/17 02:37 Temp Pulse Resp BP Pulse Ox 98.7 F 57 L 18 105/71 99 08/24/17 02:38 08/24/17 07:19 08/24/17 02:38 08/24/17 07:19 08/24/17 07:16 - Physical Exam Breasts: Positive: normal Cardiovascular: Regular rate, Normal S1 Lungs: Positive: Clear to auscultation, Normal air movement Abdomen: Positive: normal appearance, soft, tenderness, guarding, normal bowel sounds. Negative: distention Genitourinary (Female): Positive: normal external genitalia, normal perenium Vulva: both: normal Vagina: Positive: discharge Uterus: Positive: normal size Anus/Rectum: Positive: normal perianal skin Extremities: Positive: normal Deep Tendon Reflex Grade: Normal +2 - Obstetrical FHR: category 1 Uterine Tone Measurement Phase: Resting Results Result Diagrams: 08/24/17 05:20 Abnormal lab results 08/24/17 Range/Units 05:20 RDW 15.4 H (13.2-15.2) % All other labs normal. Ultrasound: report reviewed Assessment and Plan A/P IUP 35+4 weeks Previous c/sec x2, h/o HELLP, h/o PTL, GERD, Cholethiasis, fibroids, IUFD , morbid obesity oligohydramnios NAFISA 6.2 from 16 on 08/15/17 w/u prom no pooling, nitrazine neg s/p bmz in July BPP 09/17 AMFM consult- spoke with Dr. Plaza recommendations: IVF hydration dopplers today continue monitoring any leaking ( so far no leaking in hospital ) await formal consult on chart `
[2017-08-24] MEDS ORDERED: PRENATAL VITAMIN PO SCH (10:00)
--- NOTE | 2017-08-24 12:35 | Consultation ---
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 Family/Genetic History: hypertension - Obstetrical History : 3 Medications and Allergies Allergies Allergy/AdvReac Type Severity Reaction Status Date / Time No Known Allergies Allergy Verified 06/06/17 10:14 Home Medications Medication Instructions Recorded Confirmed Last Taken Type Aspirin [Aspirin BABY CHEW TAB] 81 mg PO QDAY 07/13/17 08/13/17 1 Month Ago History ~07/14/17 Pnv 102/Iron/Folate 1/Dss/Dha 1 each PO DAILY 07/13/17 08/13/17 07/13/17 History [Vitafol Fe+ Docusate Combo Pck] Active Meds: Active Medications Acetaminophen (Tylenol) 650 mg PO Q4H PRN PRN Reason: Pain MILD(1-3)/Fever >100.5/ZHAO Al Hydrox/Mg Hydrox/Simethicone (Alum-Mag Hydrox-Simeth 154-509-15gk/5ml) 30 ml PO Q6H PRN PRN Reason: Indigestion Diphenhydramine HCl (Benadryl) 25 mg PO Q6H PRN PRN Reason: Itching Docusate Sodium (Colace) 100 mg PO Q12H PRN PRN Reason: Constipation Guaifenesin (Guaifenesin Dm Syrup) 10 ml PO Q6H PRN PRN Reason: Cough Lactated Ringer's (Lactated Ringers) 1,000 mls @ 125 mls/hr IV DIRECT [facility] Last Admin: 08/24/17 11:17 Dose: 125 mls/hr Magnesium Hydroxide (Milk Of Magnesia) 30 ml PO QHS PRN PRN Reason: Laxative Effect Multivitamins/Iron/Calcium ( Vitamin) 1 each PO QDAY [facility] Last Admin: 08/24/17 11:18 Dose: 1 each Ondansetron HCl (Zofran) 4 mg IV Q6H PRN PRN Reason: Nausea And Vomiting Pseudoephedrine HCl (Sudafed) 30 mg PO Q4H PRN PRN Reason: Nasal Congestion Simethicone (Mylicon) 80 mg PO Q6H PRN PRN Reason: Gas pain Sodium Chloride (Deep Sea) 2 spray NS Q4H PRN PRN Reason: Congestion Zolpidem Tartrate (Ambien) 10 mg PO QHS PRN PRN Reason: Sleep - Vital Signs Vital signs: Vital Signs Pulse BP 74 113/56 08/24/17 02:37 08/24/17 02:37 Temp Pulse Resp BP Pulse Ox 98.7 F 60 18 126/83 98 08/24/17 11:38 08/24/17 12:01 08/24/17 11:38 08/24/17 12:01 08/24/17 08:00 Results Result Diagrams: 08/24/17 05:20 Abnormal lab results 08/24/17 Range/Units 05:20 RDW 15.4 H (13.2-15.2) % All other labs normal. Assessment and Plan AMFM Consult requested from Dr Meza Pt seen. Full consult placed on chart A: 1. IUP at 35 4/7 weeks gestation 2. IUGR ( EFW 3 lb 15oz ( 2%) on 08/15/2017 ( AMFM) 3. decreased NAIFSA - improved 4. prior IUFD at 30 weeks 5. Prior CS x 2 Rec; testing is reassuring, and the NAFISA has improved She can be discharged to home to continue her weekly testing with AMFM Kick count instructions reviewed, advised to increase her fluid intake at home to 60-90oz daily Delivery is recommended at 38 0/7 - 39 6/7 weeks gestation
[2017-08-24 13:14] VITALS: BP 120/77
--- NOTE | 2017-08-24 13:43 | Discharge Summary ---
Providers - Providers Date of Admission: 08/24/17 05:12 Date of discharge: 08/24/17 Attending physician: KEYUR BULLARD MD 08/24/17 08:09 Consult to Physician [CONS] Urgent Comment: Consulting Provider: MÓNICA TURNER Physician Instructions: Reason For Exam: oligo at 35 weeks Primary care physician: KEYUR BULLARD MD Hospitalization Reason for admission: other (decreased movememnt , oligo) Hospital course: Patient was kept for 24 hr for monitor of reported US of NAFISA of 6 . IVF and doppler performed and repeat NAFISA [address] Plaza and was cleared to go home with f/u. Strict precautions given. Condition at discharge: Good Disposition: DC-01 TO HOME OR SELFCARE Plan - Provider Discharge Summary Activity: routine, no sex for 6 weeks, no strenuous exercise Diet: routine Instructions: routine Additional instructions: [] Smoking cessation referral if applicable(refer to patient education folder for contact #) [] Refer to [facility] Booklet Call your doctor immediately for: * Fever > 100.5 * Heavy vaginal bleeding ( >1 pad per hour) * Severe persistent headache * Shortness of breath * Reddened, hot, painful area to leg or breast * Drainage or odor from incision. * Keep incision clean and dry at all times and follow doctor's instructions regarding bathing/showering - Follow up plan Follow up: KEYUR BULLARD MD [Primary Care Provider] - 7 Days
--- NOTE | 2017-08-24 14:25 | Ultrasound Report ---
FINAL REPORT EXAM: US OB CLINICAL INDICATIONS: OLIGO FINDINGS: Real-time ultrasound of the pelvis was performed with attention to the gravid uterus. cardiac activity is present at 141 bpm. Amniotic fluid index was measured at 11.5 cm, which is within normal limits. The fetus lies in transverse lie with the head to the maternal left. Cervical length is 4.4 cm. IMPRESSION: AMNIOTIC FLUID INDEX 11.5 CM WHICH IS WITHIN NORMAL LIMITS
--- NOTE | 2017-08-24 14:26 | Ultrasound Report ---
FINAL REPORT EXAM: US VELOCIMETRY UMBICAL CLINICAL INDICATIONS: OLIGO FINDINGS: Real-time ultrasound of the umbilical artery was performed using color Doppler imaging. The patient is approximately 35 weeks and 4 days gestational age. The ratio of peak systolic umbilical artery velocity to end-diastolic umbilical artery velocity is 2.4. The 50th percentile S/D ratio for this gestational age is 2.39 so the measured value is therefore within normal limits. Umbilical artery resistive index is 0.58. The 50th percentile for this gestational ag eis 0.57. This value is therefore within normal limits. IMPRESSION: UMBILICAL ARTERY S/D RATIO AND RESISTIVE INDEX ARE WITHIN NORMAL LIMITS.
== END 2017-08-24 13:45 | disposition home or self-care (01) ==
LOC: TRG 01:53 → LD 05:12 → TRG 05:12 → INTOOBSV 05:12
PROVIDERS: ADMIT Obstetrics & Gynecology; ATTEND Obstetrics & Gynecology
DX: O36.8130 Decreased fetal movements, third trimester, not applicable or unspecified (principal); O99.613 Diseases of the digestive system complicating pregnancy, third trimester; K21.9 Gastro-esophageal reflux disease without esophagitis; O99.513 Diseases of the respiratory system complicating pregnancy, third trimester; J45.909 Unspecified asthma, uncomplicated; O99.213 Obesity complicating pregnancy, third trimester; E66.01 Morbid (severe) obesity due to excess calories; Z68.41 Body mass index [BMI] 40.0-44.9, adult; Z3A.35 35 weeks gestation of pregnancy
CPT/HCPCS: 36415; 76815; 76819; 76820; 85025; 86850; 86900; 86901; 96360; 96361; G0378; J7120

== ENCOUNTER 2017-08-25 05:45 | Outpatient (CLI) | payer BC, MEDICAID ==
[2017-08-25] MEDS ORDERED: LACTATED RINGERS 500 ML IV ONE (05:54)
[2017-08-25 06:02] VITALS: BP 120/71
--- NOTE | 2017-08-25 06:55 | Ultrasound Report ---
FINAL REPORT EXAM: US OB BPP WO NON-STRESS HISTORY: labor COMPARISONS: 08/24/2017 FINDINGS: Limited grayscale, color Doppler and M-mode 3rd trimester ultrasound Single living intrauterine with recorded cardiac activity of 152 beats per minute. Amniotic fluid volume appears normal. Biophysical profile score is 8/8. IMPRESSION: Single living intrauterine third-trimester with biophysical profile of 8/8.
--- NOTE | 2017-08-25 06:57 | Ultrasound Report ---
FINAL REPORT EXAM: US OB LIMITED HISTORY: labor COMPARISONS: 08/24/2017 FINDINGS: Limited 3rd trimester transabdominal grayscale, color Doppler and M-mode ultrasound Single living intrauterine with recorded cardiac activity of 152 beats per minute in breech presentation with subjectively normal amniotic fluid volume and amniotic fluid index of approximately 16 cm. The cervix and placenta are incompletely visualized. IMPRESSION: Single living intrauterine in breech presentation with normal amniotic fluid volume and amniotic fluid index of approximately 16 cm.
== END 2017-08-25 06:40 | disposition home or self-care (01) ==
LOC: TRG 05:45
PROVIDERS: ATTEND Obstetrics & Gynecology
DX: O32.1XX0 Maternal care for breech presentation, not applicable or unspecified (principal); O47.03 False labor before 37 completed weeks of gestation, third trimester; Z3A.35 35 weeks gestation of pregnancy
CPT/HCPCS: 59025; 76815; 76819; J7120

== ENCOUNTER 2017-08-31 01:20 | Outpatient (CLI) | payer BC, MEDICAID ==
[2017-08-31 02:49] VITALS: BP 107/58
[2017-08-31] MEDS ORDERED: VISTARIL PO ONE (03:19)
[2017-08-31] MEDS ORDERED: VISTARIL ONE (03:23)
== END 2017-08-31 03:35 | disposition home or self-care (01) ==
LOC: TRG 01:20
PROVIDERS: ATTEND Obstetrics & Gynecology
DX: O47.03 False labor before 37 completed weeks of gestation, third trimester (principal); Z3A.36 36 weeks gestation of pregnancy
CPT/HCPCS: 93005; 93010; Q0177